=== PATIENT | male | born 1935 | race Native Hawaiian/Other Pacific Islander ===

== ENCOUNTER 2018-11-12 18:13 | Emergency (ER) | payer OTHER, BC ==
[~2018-11-12] VITALS: Ht 180.3 cm; Wt 88.0 kg
[~2018-11-12 18:13] MED LIST: BENZONATATE200 MG PO; COZAAR25 MG PO; DOCU SOFT100 MG OR; GNP ASPIRIN325 M1 OR; LEVO500T PO; NIFEDIAC CC90 MG OR
[2018-11-12 19:21] VITALS: BP 136/72; TEMP 98.9
== END 2018-11-12 19:21 | disposition home or self-care (01) ==
LOC: ED 18:13
DX: N39.0 Urinary tract infection, site not specified (principal)
CPT/HCPCS: 81000; 87077; 87086; 87088; 87186; 99283

== ENCOUNTER 2019-04-25 08:19 | Outpatient (CLI) | payer OTHER | END 2019-04-25 22:18 | disposition home or self-care (01) | LOC: CT 08:19 | DX: M25.512 Pain in left shoulder (principal); Z96.612 Presence of left artificial shoulder joint; M75.112 Incomplete rotator cuff tear or rupture of left shoulder, not specified as traumatic; T84.038A Mechanical loosening of other internal prosthetic joint, initial encounter ==

== ENCOUNTER 2020-04-27 12:08 | Outpatient (CLI) | payer OTHER, BC ==
[2020-04-27 13:05] LABS: POTASSIUM 5.5 mmol/L (3.6-5.2)
== END 2020-04-27 19:33 | disposition home or self-care (01) ==
LOC: LABW 12:08
PROVIDERS: ATTEND Internal Medicine Cardiovascular Disease
DX: I50.9 Heart failure, unspecified (principal); Z09 Encounter for follow-up examination after completed treatment for conditions other than malignant neoplasm
CPT/HCPCS: 36415; 80048

== ENCOUNTER 2020-05-09 08:57 | Outpatient (CLI) | payer OTHER, BC ==
[2020-05-09 09:30] LABS: POTASSIUM 4.4 mmol/L (3.6-5.2)
== END 2020-05-09 21:09 | disposition home or self-care (01) ==
LOC: LABW 08:57
PROVIDERS: ATTEND Internal Medicine Interventional Cardiology
DX: Z79.899 Other long term (current) drug therapy (principal)
CPT/HCPCS: 36415; 80048

== ENCOUNTER 2020-05-27 05:24 | Outpatient (CLI) | payer OTHER, BC ==
[2020-05-27 06:13] LABS: POTASSIUM 4.9 mmol/L (3.6-5.2)
== END 2020-05-27 19:14 | disposition home or self-care (01) ==
LOC: LABW 05:24
PROVIDERS: ATTEND Internal Medicine
DX: N18.30 Chronic kidney disease, stage 3 unspecified (principal)
CPT/HCPCS: 36415; 80048

== ENCOUNTER 2020-06-03 08:07 | Outpatient (CLI) | payer OTHER, BC ==
[2020-06-03 08:25] LABS: POTASSIUM 4.8 mmol/L (3.6-5.2)
== END 2020-06-03 22:09 | disposition home or self-care (01) ==
LOC: LABW 08:07
PROVIDERS: ATTEND Internal Medicine
DX: I50.43 Acute on chronic combined systolic (congestive) and diastolic (congestive) heart failure (principal)
CPT/HCPCS: 36415; 80048

== ENCOUNTER 2020-06-10 09:08 | Outpatient (CLI) | payer OTHER, BC ==
[2020-06-10 09:37] LABS: PLATELET COUNT 162 K/uL (142-355)
[2020-06-10 11:02] LABS: POTASSIUM 4.3 mmol/L (3.6-5.2)
== END 2020-06-10 20:44 | disposition home or self-care (01) ==
LOC: LABW 09:08
PROVIDERS: ATTEND Internal Medicine
DX: E78.2 Mixed hyperlipidemia (principal); M62.81 Muscle weakness (generalized); E03.0 Congenital hypothyroidism with diffuse goiter; N18.30 Chronic kidney disease, stage 3 unspecified; R06.09 Other forms of dyspnea; E53.8 Deficiency of other specified B group vitamins
CPT/HCPCS: 36415; 80048; 80076; 82550; 82607; 82747; 84443; 85027

== ENCOUNTER 2020-07-01 05:41 | Outpatient (CLI) | payer OTHER, BC ==
[2020-07-01 06:35] LABS: POTASSIUM 4.7 mmol/L (3.6-5.2)
== END 2020-07-01 19:07 | disposition home or self-care (01) ==
LOC: LABW 05:41
PROVIDERS: ATTEND Internal Medicine Cardiovascular Disease
DX: R60.0 Localized edema (principal)
CPT/HCPCS: 36415; 80048

== ENCOUNTER 2020-07-10 09:46 | Outpatient (CLI) | payer OTHER, BC ==
[2020-07-10 10:14] LABS: PLATELET COUNT 190 K/uL (142-355)
[2020-07-10 10:21] LABS: POTASSIUM 4.4 mmol/L (3.6-5.2)
== END 2020-07-10 21:21 | disposition home or self-care (01) ==
LOC: LABW 09:46
PROVIDERS: ATTEND Orthopaedic Surgery
DX: M25.512 Pain in left shoulder (principal); Z96.612 Presence of left artificial shoulder joint; M75.42 Impingement syndrome of left shoulder; S42.102 Fracture of unspecified part of scapula, left shoulder; M97 Periprosthetic fracture around internal prosthetic joint; M19.012 Primary osteoarthritis, left shoulder; S46.112A Strain of muscle, fascia and tendon of long head of biceps, left arm, initial encounter; Z79.899 Other long term (current) drug therapy; Z13.228 Encounter for screening for other metabolic disorders; Z01.810 Encounter for preprocedural cardiovascular examination; Z01.812 Encounter for preprocedural laboratory examination; Z13.1 Encounter for screening for diabetes mellitus; Z13.6 Encounter for screening for cardiovascular disorders; Z13.9 Encounter for screening, unspecified; I10 Essential (primary) hypertension; Z87.891 Personal history of nicotine dependence; Z79.01 Long term (current) use of anticoagulants; Z79.82 Long term (current) use of aspirin; E11.65 Type 2 diabetes mellitus with hyperglycemia; Z79.4 Long term (current) use of insulin; R68.89 Other general symptoms and signs; N18.30 Chronic kidney disease, stage 3 unspecified
CPT/HCPCS: 36415; 80053; 83036; 84134; 85027; 85610; 85652; 86140

== ENCOUNTER 2020-09-06 09:38 | Outpatient (CLI) | payer OTHER, BC | END 2020-09-06 23:59 | disposition home or self-care (01) | LOC: CT 09:38 | PROVIDERS: ATTEND Nurse Practitioner Family | DX: S00.03XA Contusion of scalp, initial encounter (principal) ==

== ENCOUNTER 2020-10-24 15:29 | Emergency (ER) | payer OTHER, BC ==
[~2020-10-24] VITALS: Ht 180.3 cm; Wt 99.8 kg
[2020-10-24 15:36] VITALS: TEMP 98
[2020-10-24 16:42] LABS: PLATELET COUNT 172 K/uL (142-355)
[2020-10-24 16:52] LABS: POTASSIUM 3.8 mmol/L (3.6-5.2)
[2020-10-24 18:37] VITALS: BP 111/66
== END 2020-10-24 19:20 | disposition home or self-care (01) ==
LOC: ED 15:29
PROVIDERS: Emergency Medicine Emergency Medical Services
DX: I50.9 Heart failure, unspecified (principal)
CPT/HCPCS: 36415; 80053; 83880; 84484; 85027; 96374; 99284; J1940

== ENCOUNTER → 2020-12-04 | Outpatient (CLI) | payer OTHER, BC | LOC: LABW 09:13 | PROVIDERS: ATTEND Psychiatry & Neurology Neurology | DX: G31.84 Mild cognitive impairment of uncertain or unknown etiology (principal); E53.8 Deficiency of other specified B group vitamins | CPT/HCPCS: 36415; 82607; 82746; 84443; 85652; 86038 ==

== ENCOUNTER 2021-09-09 11:51 | Observation (INO) | payer OTHER, BC ==
[~2021-09-09] VITALS: Ht 180.3 cm; Wt 88.0 kg
[2021-09-09 12:58] LABS: PLATELET COUNT 175 K/uL (142-355)
[2021-09-09 13:24] VITALS: BP 103/62; TEMP 97.7; Ht 180.3 cm; Wt 88.0 kg
[2021-09-09 13:28] LABS: POTASSIUM 4.3 mmol/L (3.6-5.2)
[2021-09-09] MEDS ORDERED: LEXAPRO10 MG PO (15:38)
[2021-09-09] MEDS ORDERED: MELATONIN PO (15:38)
[2021-09-09] MEDS ORDERED: APIX1TAB PO (15:39)
[2021-09-09] MEDS ORDERED: DOCU100C10 PO (15:45)
[2021-09-09] MEDS ORDERED: SPIRONOLACT25 MG PO (15:45)
[2021-09-09] MEDS ORDERED: FURO20TA67 PO (15:46)
[2021-09-09 16:00] VITALS: BP 100/60; TEMP 97.8
[2021-09-09] MEDS ORDERED: HYDR10TA47 PO (16:44)
[2021-09-09] MEDS ORDERED: TRAZODONE HYDRO50 MG PO (16:45)
[2021-09-09 20:00] VITALS: BP 97/57; TEMP 97.8
[2021-09-10] VITALS: BP 95/57; TEMP 99
[2021-09-10 04:00] VITALS: BP 96/69; TEMP 97.8
[2021-09-10 05:17] LABS: PLATELET COUNT 123 K/uL (142-355)
[2021-09-10 05:37] LABS: POTASSIUM 4.3 mmol/L (3.6-5.2)
[2021-09-10 08:00] VITALS: BP 106/66; TEMP 97.6
[2021-09-10 12:00] VITALS: BP 103/67; TEMP 97.4
[2021-09-10 16:00] VITALS: BP 104/67; TEMP 97.5
[2021-09-10 20:00] VITALS: BP 114/77; TEMP 98.5
[2021-09-11 07:52] LABS: PLATELET COUNT 129 K/uL (142-355)
[2021-09-11 08:00] VITALS: BP 113/73; TEMP 97.9
[2021-09-11 08:14] LABS: POTASSIUM 4.9 mmol/L (3.6-5.2)
[2021-09-11 12:00] VITALS: BP 101/61; TEMP 97.8
[2021-09-11 16:03] VITALS: BP 115/68; TEMP 98.2
[2021-09-11 20:00] VITALS: BP 117/72; TEMP 98.3
[2021-09-12 05:14] LABS: PLATELET COUNT 121 K/uL (142-355)
[2021-09-12 05:44] LABS: POTASSIUM 4.3 mmol/L (3.6-5.2)
[2021-09-12 08:00] VITALS: BP 115/66; TEMP 98
== END 2021-09-12 14:30 | disposition home or self-care (01) ==
LOC: MED/SURG 11:51
PROVIDERS: ADMIT Family Medicine; ATTEND Family Medicine
DX: R11.2 Nausea with vomiting, unspecified (principal); R19.7 Diarrhea, unspecified; E86.0 Dehydration; R10.31 Right lower quadrant pain; R10.32 Left lower quadrant pain; I10 Essential (primary) hypertension; G89.29 Other chronic pain; K80.00 Calculus of gallbladder with acute cholecystitis without obstruction; D64.89 Other specified anemias; E88.09 Other disorders of plasma-protein metabolism, not elsewhere classified; Z11.52 Encounter for screening for COVID-19; K59.09 Other constipation
CPT/HCPCS: 36415; 80053; 81002; 82150; 82272; 82550; 83690; 83735; 84100; 84484; 85027; 87015; 87040; 87045; 87077; 87185; 87186; 87205; 87324; 87328; 87329; 87449; 87635; 87899; 93005; 96360; 96361; 96367; 96374; 96375; 99220; G0378; G0379; J0696; J0744; J2405; J2765; J3490; U0003

== ENCOUNTER 2022-02-26 16:13 | Emergency (ER) | payer OTHER, BC ==
[~2022-02-26] VITALS: Ht 180.3 cm; Wt 85.3 kg
[~2022-02-26 16:13] MED LIST changes: +APIX1TAB PO; +DOCU100C10 PO; +FURO20TA67 PO; +HYDR10TA47 PO; +LEXAPRO10 MG PO; +MELATONIN PO; +SPIRONOLACT25 MG PO; +TRAZODONE HYDRO50 MG PO
[2022-02-26 16:15] VITALS: TEMP 98
[2022-02-26 16:41] LABS: PLATELET COUNT 182 K/uL (142-355)
[2022-02-26 16:50] LABS: POTASSIUM 4.5 mmol/L (3.6-5.2)
[2022-02-26 16:55] LABS: PARTIAL THROMBOPLASTIN TIME 22.7 SECONDS (24.5-33.6)
[2022-02-26 18:42] VITALS: BP 95/51
== END 2022-02-26 18:47 | disposition short-term general hospital (02) ==
LOC: ED 16:13
PROVIDERS: Emergency Medicine
DX: I21.4 Non-ST elevation (NSTEMI) myocardial infarction (principal); Z95.0 Presence of cardiac pacemaker; Z11.52 Encounter for screening for COVID-19
CPT/HCPCS: 80053; 83880; 84484; 85027; 85379; 85610; 85730; 87635; 93005; 96360; 99284; J1644; U0003

== ENCOUNTER 2022-03-18 09:51 | Outpatient (CLI) | payer OTHER, BC | END 2022-03-18 19:00 | disposition home or self-care (01) | LOC: RAD 09:51 | PROVIDERS: ATTEND Nurse Practitioner Primary Care | DX: M25.512 Pain in left shoulder (principal); W19.XXXA Unspecified fall, initial encounter ==

== ENCOUNTER 2022-04-09 10:28 | Outpatient (CLI) | payer OTHER, BC ==
[2022-04-09 11:17] LABS: PLATELET COUNT 173 K/uL (142-355)
== END 2022-04-09 18:58 | disposition home or self-care (01) ==
LOC: LABW 10:28
PROVIDERS: ATTEND Orthopaedic Surgery
DX: M25.512 Pain in left shoulder (principal)
CPT/HCPCS: 36415; 85027; 85379; 85652; 86140

== ENCOUNTER 2022-04-15 12:01 | Observation (INO) | payer OTHER, BC ==
[~2022-04-15] VITALS: Ht 180.3 cm; Wt 88.1 kg
[2022-04-15 13:25] LABS: PLATELET COUNT 153 K/uL (142-355)
[2022-04-15 13:35] LABS: POTASSIUM 4.5 mmol/L (3.6-5.2)
[2022-04-15 13:41] VITALS: BP 128/83; TEMP 98.4; Ht 180.3 cm; Wt 88.1 kg
[2022-04-15] MEDS ORDERED: CLOP75TA2 PO (15:45)
[2022-04-15] MEDS ORDERED: PANTOPRAZOLE 40MG TA PO (15:46)
[2022-04-15] MEDS ORDERED: TRAMADOL HYDROC50 MG PO (15:46)
[2022-04-15 16:00] VITALS: BP 123/79; TEMP 98.2
[2022-04-15 19:30] VITALS: BP 93/48; TEMP 98.2
[2022-04-15 23:31] VITALS: BP 107/65; TEMP 97.8
[2022-04-16 04:00] VITALS: BP 123/79; TEMP 98.3
[2022-04-16 08:00] VITALS: BP 120/80; TEMP 98.2
[2022-04-16] MEDS ORDERED: VITAMIN D32000 UNI1 PO (09:17)
[2022-04-16 12:00] VITALS: BP 122/81; TEMP 98.1
[2022-04-16] MEDS ORDERED: GABA300C2 PO (12:21)
== END 2022-04-16 12:45 | disposition home or self-care (01) ==
LOC: MED/SURG 12:01
PROVIDERS: ADMIT Family Medicine; ATTEND Internal Medicine
DX: B02.23 Postherpetic polyneuropathy (principal); B02.8 Zoster with other complications; R41.82 Altered mental status, unspecified; E86.0 Dehydration; J01.90 Acute sinusitis, unspecified; C44.92 Squamous cell carcinoma of skin, unspecified; I48.91 Unspecified atrial fibrillation; K21.9 Gastro-esophageal reflux disease without esophagitis; R11.2 Nausea with vomiting, unspecified; R53.1 Weakness; R62.7 Adult failure to thrive; R26.89 Other abnormalities of gait and mobility; F32.A Depression, unspecified; Z95.0 Presence of cardiac pacemaker; I13.0 Hypertensive heart and chronic kidney disease with heart failure and stage 1 through stage 4 chronic kidney disease, or unspecified chronic kidney disease; N18.4 Chronic kidney disease, stage 4 (severe); I50.9 Heart failure, unspecified; N17.8 Other acute kidney failure; C44.89 Other specified malignant neoplasm of overlapping sites of skin
CPT/HCPCS: 80053; 81002; 85027; 87635; 99220; G0378; G0379; J1650; U0003

== ENCOUNTER 2022-04-24 12:50 | Observation (INO) | payer OTHER, BC ==
[~2022-04-24] VITALS: Ht 180.3 cm; Wt 86.3 kg
[~2022-04-24 12:50] MED LIST changes: +CLOP75TA2 PO; +GABA300C2 PO; +PANTOPRAZOLE 40MG TA PO; +TRAMADOL HYDROC50 MG PO; +VITAMIN D32000 UNI1 PO
[2022-04-24 14:27] LABS: POTASSIUM 4.2 mmol/L (3.6-5.2)
[2022-04-24 14:29] VITALS: BP 139/68; TEMP 99.4; Ht 180.3 cm; Wt 86.3 kg
[2022-04-24 14:35] LABS: PLATELET COUNT 227 K/uL (142-355)
[2022-04-24 16:00] VITALS: BP 114/68; TEMP 98.6
[2022-04-24 19:41] VITALS: BP 115/65; TEMP 99
[2022-04-24 23:37] VITALS: BP 130/80; TEMP 99.9
[2022-04-25 03:36] VITALS: BP 114/73; TEMP 98.2
[2022-04-25 05:54] LABS: POTASSIUM 4.1 mmol/L (3.6-5.2)
[2022-04-25 08:00] VITALS: BP 126/74; TEMP 99.2
[2022-04-25 12:00] VITALS: BP 109/69; TEMP 98.6
[2022-04-25 16:00] VITALS: BP 128/74; TEMP 99.5
[2022-04-25 19:30] VITALS: BP 131/79; TEMP 99.6
[2022-04-25 23:34] VITALS: BP 118/73; TEMP 98.1
[2022-04-26] VITALS (7 sets, daily range): BP systolic 108–128; BP diastolic 55–78; TEMP 98.5–99.6
[2022-04-27 03:33] VITALS: BP 117/67; TEMP 98.1
[2022-04-27 07:36] VITALS: BP 127/69; TEMP 97.8
[2022-04-27 11:37] VITALS: BP 115/70; TEMP 98.3
== END 2022-04-27 17:00 | disposition home or self-care (01) ==
LOC: MED/SURG 12:50
PROVIDERS: ADMIT Internal Medicine; ATTEND Internal Medicine
DX: R26.89 Other abnormalities of gait and mobility (principal); S51.011A Laceration without foreign body of right elbow, initial encounter; I48.91 Unspecified atrial fibrillation; G40.802 Other epilepsy, not intractable, without status epilepticus; M15.8 Other polyosteoarthritis; K21.9 Gastro-esophageal reflux disease without esophagitis; C44.89 Other specified malignant neoplasm of overlapping sites of skin; M25.551 Pain in right hip; M25.511 Pain in right shoulder; R53.1 Weakness; Z95.0 Presence of cardiac pacemaker; F32.89 Other specified depressive episodes; R74.8 Abnormal levels of other serum enzymes; W18.39XA Other fall on same level, initial encounter; Y92.89 Other specified places as the place of occurrence of the external cause; I13.0 Hypertensive heart and chronic kidney disease with heart failure and stage 1 through stage 4 chronic kidney disease, or unspecified chronic kidney disease; N18.32 Chronic kidney disease, stage 3b; I50.9 Heart failure, unspecified
CPT/HCPCS: 36415; 80053; 81002; 82550; 83735; 84484; 85027; 87040; 87635; 93005; 96360; 96361; 96372; 99220; G0378; G0379; J1650; U0003

== ENCOUNTER 2022-05-01 10:47 | Outpatient (CLI) | payer OTHER, BC | END 2022-05-01 19:25 | disposition home or self-care (01) | LOC: RAD 10:47 | PROVIDERS: ATTEND Nurse Practitioner Family | DX: M25.551 Pain in right hip (principal) ==

== ENCOUNTER 2022-06-12 10:55 | Outpatient (CLI) | payer OTHER, BC ==
[2022-06-12 11:09] LABS: PLATELET COUNT 225 K/uL (142-355)
[2022-06-12 11:33] LABS: POTASSIUM 4.5 mmol/L (3.6-5.2)
== END 2022-06-12 20:37 | disposition home or self-care (01) ==
LOC: LABW 10:55
PROVIDERS: ATTEND Nurse Practitioner Family
DX: R53.83 Other fatigue (principal)
CPT/HCPCS: 36415; 80053; 85027

== ENCOUNTER 2022-07-17 10:59 | Outpatient (CLI) | payer OTHER, BC ==
[2022-07-17 11:35] LABS: PLATELET COUNT 223 K/uL (142-355)
[2022-07-17 11:49] LABS: POTASSIUM 5.1 mmol/L (3.6-5.2)
== END 2022-07-17 19:38 | disposition home or self-care (01) ==
LOC: RESP 10:59
PROVIDERS: ATTEND Nurse Practitioner Family
DX: R60.0 Localized edema (principal)
CPT/HCPCS: 36415; 80053; 82550; 82553; 83880; 84484; 85027; 93005

== ENCOUNTER 2022-07-17 12:38 | Emergency (ER) | payer OTHER, BC ==
[~2022-07-17] VITALS: Ht 180.3 cm; Wt 94.5 kg
[2022-07-17 16:09] VITALS: BP 101/59; TEMP 98.2
== END 2022-07-17 16:10 | disposition short-term general hospital (02) ==
LOC: ED 12:38
PROVIDERS: Emergency Medicine
DX: I21.9 Acute myocardial infarction, unspecified (principal)
CPT/HCPCS: 85610; 85730; 93005; 99285

== ENCOUNTER 2022-10-19 12:30 | Emergency (ER) | payer OTHER, BC ==
[~2022-10-19] VITALS: Ht 180.3 cm; Wt 88.0 kg
[2022-10-19 12:36] VITALS: BP 111/65; TEMP 98.6
[2022-10-19 13:32] LABS: POTASSIUM 4.2 mmol/L (3.6-5.2)
[2022-10-19 13:36] VITALS: BP 139/64
[2022-10-19 13:51] LABS: PLATELET COUNT 186 K/uL (142-355)
[2022-10-19 14:30] VITALS: BP 131/67
[2022-10-19 15:30] VITALS: BP 122/52
[2022-10-19 16:30] VITALS: BP 115/51
[2022-10-19 17:53] VITALS: BP 110/70
== END 2022-10-19 17:55 | disposition still patient (30) ==
LOC: ED 12:30 → MED/SURG 15:34 → ED 17:55
PROVIDERS: Family Medicine
DX: G45.9 Transient cerebral ischemic attack, unspecified (principal); R77.8 Other specified abnormalities of plasma proteins; I50.9 Heart failure, unspecified
CPT/HCPCS: 36415; 80053; 83880; 84484; 85027; 93005; 99284